=== PATIENT | male | born 1990 | race Hispanic/Latino ===

== ENCOUNTER 2017-08-26 17:14 | Inpatient (IN) | payer MEDICAID, OTHER ==
[2017-08-26 18:09] LABS: #Basophils 0.1 thou/uL (0.0-0.2); #Eosinphils 0.1 thou/uL (0.0-0.7); #Lymphocytes 3.5 thou/uL (1.20-3.40); #Monocytes 0.8 thou/uL (0.11-0.59); #Neutrophils 8.9 thou/uL (1.40-6.50); %Basophils 0.6 % (0.0-1.0); %Eosinophils 0.8 % (0.0-10.0); %Lymphocytes 25.8 % (21.0-51.0); %Monocytes 6.1 % (0.0-10.0); %Neutrophils 66.8 % (42.0-75.0); Hemoglobin 16.8 g/dL (14.0-18.0); Mean Corpuscular HGB CONC 34.9 g/dL (32.0-36.0); Mean Corpuscular Hemoglobin 30.2 pg (27.0-31.0); Mean Corpuscular Volume 86.6 fl (80.0-94.0); Mean Platelet Volume 8.9 fL (7.4-10.4); Platelet Count 268 thou/uL (130-400); RBC Distribution Width 12.4 % (11.5-14.5); Red Blood Cell (RBC) Count 5.57 mill/uL (4.70-6.10); White Blood Cell (WBC) Count 13.4 thou/uL (4.8-10.8)
[2017-08-26 18:14] LABS: Base Excess-Venous -0.9 mmol/L (0 (+/- 2.5)); Bicarbonate (HCO3v) 24.2 mmol/L (1.0-85.0); CO2 Tension (PvCO2) 40.5 mmHg (41.0-51.0); Calcium, Ionized 1.05 mmol/L (1.12-1.32); Hemoglobin - Calc 18.2 g/dL (12.0-18.0); T. Carbon Dioxide 25.4 mmol/L (1.0-85.0); pH (Venous) 7.384 (7.35-7.45); vO2 Saturation-calc 62.5 % (94-98)
[2017-08-26 18:20] LABS: Bilirubin Negative (Negative); Blood, Urine Negative (Negative); Clarity CLEAR (Clear); Glucose, Urine (Dipstick) >=1000 mg/dL (Negative); Leukocyte Negative (Negative); Nitrite Negative (Negative); Protein, Urine (Dipstick) Trace mg/dL (Neg-Trace); Urobilinogen 0.2 mg/dL (0.2-1.0)
[2017-08-26 18:34] LABS: ALT (SGPT) 65 U/L (8-55); AST (SGOT) 36 U/L (5-34); Alkaline Phosphatase 116 U/L (40-150); Anion Gap 21 mmol/L (10-20); BUN (Urea Nitrogen) 14 mg/dL (8.9-20.6); Bilirubin, Total 1.3 mg/dL (0.2-1.2); CK (CPK) 96 U/L (30-200); Calc. Creatinine Clearance 0 mL/min (70-130); Calcium 10.7 mg/dL (7.8-10.44); Carbon Dioxide 22 mmol/L (22-29); Chloride 95 mmol/L (98-107); Estimated GFR-MDRD 68; Globulin 3.6 g/dL (2.4-3.5); Protein, Total 8.6 g/dL (6.0-8.3); Sodium 134 mmol/L (136-145)
[2017-08-26 18:38] LABS: Glucose 615 mg/dL (70-105)
[2017-08-26] MEDS ORDERED: Insulin Regular 300 UNITS/3 ML VIAL ONE (18:50)
[2017-08-26 19:05] LABS: Magnesium 2.3 mg/dL (1.6-2.6); Phosphorus 5.1 mg/dL (2.3-4.7)
--- NOTE | 2017-08-26 19:20 | PDOC.FPRHP ---
- History of Present Illness Chief Complaint: Weakness, N/V History of Present Illness: 27 yo male presents for evaluation of weakness, N/V for one month. He is a type 2 DM diganosed approximately 4 years ago. He last had his A1C checked in June 2017 and it was 10.3. He states over the last month he has had polyuria and polydipsia. He does not check his glucose levels on a daily basis. He denies any recent fevers, but does state he gets chills at nights at times. His states he has had weakness, fatigue, and low energy during this time as well. He states he has had associated nausea and vomiting with intermittent diarrhea. He also complains of pain in his rectum that comes and goes. He states he has some blood on the toilet paper and also has problems with constipation. No other complaints today. ED Course: 2L NS Novolin 6 u - Allergies/Adverse Reactions Allergies Allergy/AdvReac Type Severity Reaction Status Date / Time cefaclor [From Ceclor] Allergy Verified 08/26/17 19:22 - Home Medications Medication Instructions Recorded Confirmed Type Atorvastatin Calcium 40 mg PO DAILY 08/26/17 08/26/17 History Lisinopril [Zestril] 2.5 mg PO DAILY 08/26/17 08/26/17 History Pantoprazole Sodium [Protonix] 40 mg PO DAILY 08/26/17 08/26/17 History metFORMIN [Glucophage] 500 mg PO QAM-WM 08/26/17 08/26/17 History - History PMHx: DM2, GERD, HLD, HTN PSHx: Tumor removal behind L eye, Cyst removal, Tonsillectomy FHx: Non-Contributory Social: Social alcohol drinker, No tobacco or drug use. - Review of Systems General: denies: fever/chills, weight/appetite/sleep changes Eyes: denies: eye pain ENT: denies: nasal congestion, rhinorrhea Respiratory: denies: cough, congestion, shortness of breath Cardiovascular: denies: chest pain, palpitation Gastrointestinal: reports: nausea, vomiting Genitourinary: reports: polyuria Skin: denies: rashes, lesions Musculoskeletal: denies: pain, tenderness, stiffness Neurological: reports: weakness. denies: numbness, syncope Psychological: denies: anxiety, depression - Vital signs BP: [124/71] HR: [89] RR: [20] Tmax: [97.5] Pox: [97]% on [RmAir] Wt: [95.25] - Physical Exam Constitutional: NAD HEENT: grossly normal vision, TM's clear and intact, grossly normal hearing, normal nasal mucosa Neck: supple, trachea midline Chest: no-tender to palpation Heart: RRR, normal S1/S2, no murmurs/rubs/gallops, pulses present Lungs: CTAB, no respiratory distress, good air movement, no wheezing, no retractions Abdomen: soft, non-tender, bowel sounds present, no masses/distention Musculoskeletal: normal structure, normal tone Neurological: no focal deficit, CN II-XII intact, normal sensation Skin: no rash/lesions, good turgor, capillary refill <2 seconds Heme/Lymphatic: no unusual bruising or bleeding, no purpura Psychiatric: normal mood and affect, good judgment and insight, intact recent and remote memory FMR H&P: Results - Labs Result Diagrams: 08/26/17 17:48 08/26/17 17:48 Lab results: WBC 13.4 thou/uL (4.8-10.8) H 08/26/17 17:48 Hgb 16.8 g/dL (14.0-18.0) 08/26/17 17:48 Hct 48.2 % (42.0-52.0) 08/26/17 17:48 MCV 86.6 fl (80.0-94.0) 08/26/17 17:48 Plt Count 268 thou/uL (130-400) 08/26/17 17:48 Neutrophils % 66.8 % (42.0-75.0) 08/26/17 17:48 VBG pCO2 40.5 mmHg (41.0-51.0) L 08/26/17 17:57 VBG pO2 33.0 mmHg (35.0-45.0) L 08/26/17 17:57 Sodium 134 mmol/L (136-145) L 08/26/17 17:48 Potassium 4.0 mmol/L (3.5-5.1) 08/26/17 17:48 Chloride 95 mmol/L (98-107) L 08/26/17 17:48 Carbon Dioxide 22 mmol/L (22-29) 08/26/17 17:48 BUN 14 mg/dL (8.9-20.6) 08/26/17 17:48 Creatinine 1.28 mg/dL (0.6-1.3) 08/26/17 17:48 Glucose 615 mg/dL (70-105) H* 08/26/17 17:48 Lactic Acid 1.4 mmol/L (0.5-2.2) 08/26/17 17:51 Calcium 10.7 mg/dL (7.8-10.44) H 08/26/17 17:48 Total Bilirubin 1.3 mg/dL (0.2-1.2) H 08/26/17 17:48 AST 36 U/L (5-34) H 08/26/17 17:48 ALT 65 U/L (8-55) H 08/26/17 17:48 Alkaline Phosphatase 116 U/L (40-150) 08/26/17 17:48 Creatine Kinase 96 U/L (30-200) 08/26/17 17:48 Serum Total Protein 8.6 g/dL (6.0-8.3) H 08/26/17 17:48 Albumin 5.0 g/dL (3.5-5.0) 08/26/17 17:48 Urine Ketones 40 mg/dL (Negative) H 08/26/17 18:00 Urine Blood Negative (Negative) 08/26/17 18:00 Urine Nitrite Negative (Negative) 08/26/17 18:00 Ur Leukocyte Esterase Negative (Negative) 08/26/17 18:00 FMR H&P: A/P - Problem List (1) Ketosis due to diabetes Current Visit: Yes Status: Acute Code(s): E13.10 - OTH DIABETES MELLITUS WITH KETOACIDOSIS WITHOUT COMA (2) DM2 (diabetes mellitus, type 2) Current Visit: Yes Status: Acute (3) HTN (hypertension) Current Visit: Yes Status: Acute Code(s): I10 - ESSENTIAL (PRIMARY) HYPERTENSION (4) HLD (hyperlipidemia) Current Visit: Yes Status: Acute Code(s): E78.5 - HYPERLIPIDEMIA, UNSPECIFIED (5) GERD (gastroesophageal reflux disease) Current Visit: Yes Status: Acute Code(s): K21.9 - GASTRO-ESOPHAGEAL REFLUX DISEASE WITHOUT ESOPHAGITIS (6) Hemorrhoids Current Visit: Yes Status: Acute Code(s): K64.9 - UNSPECIFIED HEMORRHOIDS (7) Elevated LFTs Current Visit: Yes Status: Acute Code(s): R79.89 - OTHER SPECIFIED ABNORMAL FINDINGS OF BLOOD CHEMISTRY - Plan 1. Ketosis with DM2 - No acidosis at this time - IVF - Will initiate long acting insulin and sliding scale - Accuchecks - Will check C-peptide level - A1C checked June 2017 10.3 2. HTN - Continue Lisinopril - Monitor BP 3. HLD - Continue Statin 4. GERD - Continue Protonix 5. Hemorrhoids - Topical Therapy 6. Elevated LFTs - Consistent with Lab findings one month ago - Likely LLOYD - Recommend outpatient follow up CODE STATUS: FULL CODE Disposition: Stable, Will admit to Medical. FMR H&P: Upper Level - Pertinent history 27 yo HM pmhx T2DM and hyperlipidemia presents for evaluation of worsening weakness and N/V x 1 day. His stated that she also noticed him looking pale and diaphoretic today and encouraged him to go to ER. Mentation intact. Patient states that he has been having these symptoms, along with polydypsia and polyuria for one month. Has lost approximately 20 lbs over that time period. Diabetes was diagnosed approximately 4 years ago. Last A1C checked in June 2017 was 10.3. Patient was instructed to increase metformin to twice per day, but he has only been able to tolerate once daily dosing due to GI side effects. He has not been checking his glucose levels at home. He denies any recent fevers or symptoms of infection. No sick contacts. No chest pain. Endorses marajuana and ETOH use a few times this past month but denies any recent consumption over the past week. - Pertinent findings Gen: obese, NAD, appears stated age CV: RRR, no m/g/r Lungs: CTAB, no wheezing Abd: +BS, non-tender to palpation, no HSM Ext: no c/c/e Pulses: DP 2+ b/l - Plan Date/Time: 08/26/171917 IRudi MD, have evaluated this patient and agree with findings/plan as outlined by event marketing intern resident. Pertinent changes/additions are listed here. 27 yo HM with: 1) Diabetic ketosis without acidosis: Admit to medical. Start long acting insulin. Continue fluids. Short acting prn. Keep NPO until gap closes. 2) Uncontrolled type 2 DM with microalbuminuria: Recheck A1c. Will also check C- peptide to verify endogenous insulin production still intact. Diabetes education during admission. Will need to ensure patient has glucose testing supplies at discharge. He will also need to go home on insulin. 3) HTN: cont. lisinopril (patient was not taking until 1 month ago, so dose probably does not need to be increased at this time for microalbuminura) 4) HLD: cont. high dose statin 5) Elevated LFTs - Consistent with previous labs in Clinic 1 month ago. Likely LLOYD, but will need outpatient workup. Attending Addendum - Attending Addendum Date/Time: 08/26/17 [id number] I personally evaluated the patient and discussed the management with Drs. Joya and Emilee. I agree with the History, Examination, Assessment and Plan documented above with any addition or exceptions noted below. Patient is has Diabetes withi betahydroxybuterate, but is not significantly acidotic, yet is not classic HHS. IV fluid resuscitation performed in ER. Insulin initiated. C-peptide ordered.
[2017-08-26] MEDS ORDERED: Insulin Detemir 100 UNITS/ML 8 UNITS in Pre-Filled Syringe 1 EACH SC SCH (20:15)
[2017-08-26] MEDS ORDERED: Dextrose 50% Abboject 50 ML SYRINGE SLOW IVP PRN (21:49)
[2017-08-26] MEDS ORDERED: Ondansetron ODT 4 MG TAB PO PRN (21:49)
[2017-08-26] MEDS ORDERED: Senokot 8.6 MG TAB PO PRN (21:49)
[2017-08-26] MEDS ORDERED: Bisacodyl 5 MG TAB PO PRN (21:49)
[2017-08-26] MEDS ORDERED: Preparation H Suppository PR PRN (21:49)
[2017-08-26] MEDS ORDERED: Dextrose 5% in Water 1,000 ML IV PRN (21:49)
[2017-08-26] MEDS ORDERED: Acetaminophen 325 MG TAB PO PRN (21:49)
[2017-08-26 22:26] LABS: Anion Gap 18 mmol/L (10-20); BUN (Urea Nitrogen) 11 mg/dL (8.9-20.6); Calc. Creatinine Clearance 0 mL/min (70-130); Calcium 9.6 mg/dL (7.8-10.44); Carbon Dioxide 22 mmol/L (22-29); Chloride 105 mmol/L (98-107); Estimated GFR-MDRD Greater than 90; Glucose 318 mg/dL (70-105); Potassium 3.9 mmol/L (3.5-5.1); Sodium 141 mmol/L (136-145)
[2017-08-26] MEDS: NS 0.9% w/ 20 MEQ KCL 1,000 ML/1,000 ML BAG IV SCH (22:42)
[2017-08-26] MEDS: Docusate 100 MG CAP PO SCH (22:42)
[2017-08-26] MEDS ORDERED: Docusate 100 MG CAP PO SCH (22:45)
[2017-08-27 01:55] VITALS: BMI 32.5
[2017-08-27] MEDS: NS 0.9% w/ 20 MEQ KCL 1,000 ML/1,000 ML BAG IV SCH ×3 (02:30→09:19)
[2017-08-27 05:20] LABS: ALT (SGPT) 52 U/L (8-55); AST (SGOT) 36 U/L (5-34); Albumin 3.9 g/dL (3.5-5.0); Alkaline Phosphatase 75 U/L (40-150); Anion Gap 15 mmol/L (10-20); BUN (Urea Nitrogen) 11 mg/dL (8.9-20.6); Calc. Creatinine Clearance 166 mL/min (70-130); Calcium 8.8 mg/dL (7.8-10.44); Carbon Dioxide 21 mmol/L (22-29); Chloride 107 mmol/L (98-107); Estimated GFR-MDRD Greater than 90; Globulin 2.4 g/dL (2.4-3.5); Glucose 300 mg/dL (70-105); Potassium 4.6 mmol/L (3.5-5.1); Protein, Total 6.3 g/dL (6.0-8.3); Sodium 138 mmol/L (136-145)
[2017-08-27] MEDS: HumaLOG 300 UNITS/3 ML VIAL SC PRN ×4 (05:26→17:38)
--- NOTE | 2017-08-27 08:33 | PDOC.FM ---
- Subjective Subjective: Patient is doing well. He did not sleep very well overnight. He is hungry this AM. He denies any N/V, abdominal pain, chest pain. He reports that he is overall feeling a lot better. He understands that he is going to have to be on insulin at home. - Objective MAR Reviewed: Yes Vital Signs & Weight: Vital Signs (12 hours) Temp Pulse Resp BP Pulse Ox 08/27/17 07:27 98.3 F 64 16 110/71 98 08/27/17 03:47 98.4 F 62 18 119/78 98 08/26/17 23:31 98.4 F 76 18 120/72 99 08/26/17 20:55 98.1 F 90 18 124/77 98 Weight Weight 91.49 kg I&O: 08/26/17 08/27/17 08/28/17 06:59 06:59 06:59 Intake Total 2530 Balance 2530 Result Diagrams: 08/26/17 17:48 08/27/17 03:57 <Mariaa Mirza - Last Filed: 08/27/17 08:31> - Objective Vital Signs & Weight: Vital Signs (12 hours) Temp Pulse Resp BP BP Pulse Ox 08/27/17 11:43 98.5 F 64 16 111/64 98 08/27/17 09:06 64 110/71 08/27/17 08:00 98.3 F 64 16 08/27/17 07:27 98.3 F 64 16 110/71 98 08/27/17 03:47 98.4 F 62 18 119/78 98 Weight Weight 91.49 kg I&O: 08/26/17 08/27/17 08/28/17 06:59 06:59 06:59 Intake Total 2530 Balance 2530 Result Diagrams: 08/26/17 17:48 08/27/17 03:57 <Darling Black - Last Filed: 08/27/17 15:18> Phys Exam - Physical Examination Constitutional: NAD HEENT: moist MMs Respiratory: no wheezing, no rales, no rhonchi, clear to auscultation bilateral Cardiovascular: RRR, no significant murmur, no rub Gastrointestinal: soft, non-tender, no distention, positive bowel sounds obese Musculoskeletal: no edema, pulses present Neurological: non-focal, moves all 4 limbs Psychiatric: normal affect, A&O x 3 Skin: normal turgor, cap refill <2 seconds <Mariaa Mirza - Last Filed: 08/27/17 08:31> Dx/Plan (1) Ketosis due to diabetes Code(s): E13.10 - OTH DIABETES MELLITUS WITH KETOACIDOSIS WITHOUT COMA Status : Acute (2) DM2 (diabetes mellitus, type 2) Status: Acute QualifierTitle: Diabetes mellitus longterm insulin use: without longterm use Diabetes mellitus complication status: with ketoacidosis Diabetes mellitus complication detail: without coma Qualified Code(s): E11.10 - Type 2 diabetes mellitus with ketoacidosis without coma (3) Elevated LFTs Code(s): R79.89 - OTHER SPECIFIED ABNORMAL FINDINGS OF BLOOD CHEMISTRY Status : Acute (4) GERD (gastroesophageal reflux disease) Code(s): K21.9 - GASTRO-ESOPHAGEAL REFLUX DISEASE WITHOUT ESOPHAGITIS Status: Acute QualifierTitle: Esophagitis presence: without esophagitis Qualified Code( s): K21.9 - Gastro-esophageal reflux disease without esophagitis (5) HLD (hyperlipidemia) Code(s): E78.5 - HYPERLIPIDEMIA, UNSPECIFIED Status: Acute QualifierTitle: Hyperlipidemia type: other hyperlipidemia Qualified Code( s): E78.4 - Other hyperlipidemia (6) HTN (hypertension) Code(s): I10 - ESSENTIAL (PRIMARY) HYPERTENSION Status: Acute QualifierTitle: Hypertension type: essential hypertension Qualified Code( s): I10 - Essential (primary) hypertension (7) Hemorrhoids Code(s): K64.9 - UNSPECIFIED HEMORRHOIDS Status: Acute QualifierTitle: Hemorrhoid type: unspecified Qualified Code(s): K64.9 - Unspecified hemorrhoids - Plan Plan: Ketosis with DM2 Patient presented with elevated ketones and glucose of 615. He has no acidosis at this time. He was given 6U insulin in ED as well as 2L NS boluses. His glucose came down to 320 with that. He was started on 8U levemir overnight last night, but his glucose remained around 300. He is still on IVF as well. He was started on a CC diet. His A1c in 06/2017 was 10.3 and it is 14.0 now. - NS with 20mEq KCl at 250 mL/hr - Mild SSI - Accuchecks q4h - C-peptide level - Levemir 15U BID, will titrate up as necessary - Will prescribe glucometer and supplies for outpatient - Diabetic education HTN - Continue Lisinopril - Monitor BP HLD - Continue Statin GERD - Continue Protonix Hemorrhoids - Topical Therapy Elevated LFTs - Consistent with Lab findings one month ago - Likely NAFLD - Recommend outpatient follow up <Mariaa Mirza - Last Filed: 08/27/17 08:31> Attending Addendum - Attending Addendum Date/Time: 08/27/17 1307 I personally evaluated the patient and discussed the management with Dr. Mirza. I agree with the History, Examination, Assessment and Plan documented above with any addition or exceptions noted below. Patient has been started on insulin for uncontrolled diabetes. Will get compensation associate to discuss diabetic diet. Discussed importance of blood sugar control. He voiced understanding. Continue to titrate insulin. <Darling Black - Last Filed: 08/27/17 15:18>
[2017-08-27 08:57] LABS: Magnesium 1.9 mg/dL (1.6-2.6); Phosphorus 2.9 mg/dL (2.3-4.7)
[2017-08-27] MEDS ORDERED: Pantoprazole 40 MG GRANULES PACKET PO SCH (09:00)
[2017-08-27] MEDS ORDERED: Insulin Detemir 100 UNITS/ML 10 UNITS in Pre-Filled Syringe 1 EACH SC SCH ×2 (09:00→21:00)
[2017-08-27] MEDS ORDERED: Insulin Detemir 100 UNITS/ML 15 UNITS in Pre-Filled Syringe 1 EACH SC SCH ×2 (09:00→21:00)
[2017-08-27] MEDS: Docusate 100 MG CAP PO SCH ×2 (09:06→20:35)
[2017-08-27] MEDS: metFORMIN 500 MG TAB PO SCH (09:06)
[2017-08-27] MEDS: Lisinopril 2.5 MG TAB PO SCH (09:06)
[2017-08-27] MEDS: Atorvastatin Calcium 40 MG TAB PO SCH (09:07)
[2017-08-27] MEDS ORDERED: Ibuprofen 800 MG TAB PO PRN (20:45)
[2017-08-27] MEDS ORDERED: Insulin Detemir 100 UNITS/ML 20 UNITS in Pre-Filled Syringe SC SCH (21:00)
[2017-08-28] MEDS: HumaLOG 300 UNITS/3 ML VIAL SC PRN ×3 (05:08→12:26)
[2017-08-28] MEDS ORDERED: Dextrose 5% in Water 1,000 ML IV PRN (06:48)
[2017-08-28] MEDS ORDERED: Dextrose 50% Abboject 50 ML SYRINGE SLOW IVP PRN (06:48)
[2017-08-28 07:30] VITALS: BP 117/75; TEMP 97.7
[2017-08-28] MEDS: Docusate 100 MG CAP PO SCH (08:06)
[2017-08-28] MEDS: Atorvastatin Calcium 40 MG TAB PO SCH (08:06)
[2017-08-28] MEDS: Lisinopril 2.5 MG TAB PO SCH (08:06)
[2017-08-28] MEDS: metFORMIN 500 MG TAB PO SCH (08:11)
[2017-08-28] MEDS ORDERED: Insulin Detemir 100 UNITS/ML 25 UNITS in Pre-Filled Syringe 1 EACH SC SCH (09:00)
--- NOTE | 2017-08-28 09:13 | PDOC.FM ---
- Subjective Subjective: Patient doing well this AM. Reports some episodes of nausea yesterday. He also reports feeling "sick" at times yesterday. He slept well and is eating well. No other complaints. - Objective MAR Reviewed: Yes Vital Signs & Weight: Vital Signs (12 hours) Temp Pulse Resp BP BP Pulse Ox 08/28/17 08:06 75 117/75 08/28/17 08:00 97.7 F 75 16 08/28/17 07:28 97.7 F 75 16 117/75 100 Weight Weight 91.49 kg I&O: 08/27/17 08/28/17 08/29/17 06:59 06:59 06:59 Intake Total 2530 490 Balance 2530 490 Result Diagrams: 08/26/17 17:48 08/27/17 03:57 <Mariaa Mirza - Last Filed: 08/28/17 09:10> - Objective Vital Signs & Weight: Vital Signs (12 hours) Temp Pulse Resp BP BP Pulse Ox 08/28/17 08:06 75 117/75 08/28/17 08:00 97.7 F 75 16 08/28/17 07:28 97.7 F 75 16 117/75 100 Weight Weight 91.49 kg I&O: 08/27/17 08/28/17 08/29/17 06:59 06:59 06:59 Intake Total 2530 490 Balance 2530 490 Result Diagrams: 08/26/17 17:48 08/27/17 03:57 <Darling Black - Last Filed: 08/28/17 18:50> Phys Exam - Physical Examination Constitutional: NAD HEENT: moist MMs Respiratory: no wheezing, no rales, no rhonchi, clear to auscultation bilateral Cardiovascular: RRR, no significant murmur, no rub Gastrointestinal: soft, non-tender, no distention, positive bowel sounds Musculoskeletal: no edema, pulses present Neurological: non-focal, normal sensation, moves all 4 limbs Psychiatric: normal affect, A&O x 3 Skin: normal turgor, cap refill <2 seconds <Mariaa Mirza - Last Filed: 08/28/17 09:10> Dx/Plan (1) Ketosis due to diabetes Code(s): E13.10 - OTH DIABETES MELLITUS WITH KETOACIDOSIS WITHOUT COMA Status : Acute (2) DM2 (diabetes mellitus, type 2) Status: Acute QualifierTitle: Diabetes mellitus chcf insulin use: without long goods drier use Diabetes mellitus complication status: with ketoacidosis Diabetes mellitus complication detail: without coma Qualified Code(s): E11.10 - Type 2 diabetes mellitus with ketoacidosis without coma (3) Elevated LFTs Code(s): R79.89 - OTHER SPECIFIED ABNORMAL FINDINGS OF BLOOD CHEMISTRY Status : Acute (4) GERD (gastroesophageal reflux disease) Code(s): K21.9 - GASTRO-ESOPHAGEAL REFLUX DISEASE WITHOUT ESOPHAGITIS Status: Acute QualifierTitle: Esophagitis presence: without esophagitis Qualified Code( s): K21.9 - Gastro-esophageal reflux disease without esophagitis (5) HLD (hyperlipidemia) Code(s): E78.5 - HYPERLIPIDEMIA, UNSPECIFIED Status: Acute QualifierTitle: Hyperlipidemia type: other hyperlipidemia Qualified Code( s): E78.4 - Other hyperlipidemia (6) HTN (hypertension) Code(s): I10 - ESSENTIAL (PRIMARY) HYPERTENSION Status: Acute QualifierTitle: Hypertension type: essential hypertension Qualified Code( s): I10 - Essential (primary) hypertension (7) Hemorrhoids Code(s): K64.9 - UNSPECIFIED HEMORRHOIDS Status: Acute QualifierTitle: Hemorrhoid type: unspecified Qualified Code(s): K64.9 - Unspecified hemorrhoids - Plan Plan: Ketosis with DM2 Patient presented with elevated ketones and glucose of 615. He has no acidosis at this time. He was given 6U insulin in ED as well as 2L NS boluses. His glucose came down to 320 with that. He was started on a CC diet. His A1c in 2017 was 10.3 and it is 14.0 now. Yesterday he was given 15U Levemir in the AM and 20U in the PM along with 15 U SSI. His glucose ranged from 239-307. - IVF d/c'd - Increased SSI to moderate - Accuchecks q4h - Levemir 25U BID, will titrate up as necessary - Will prescribe glucometer and supplies for outpatient - Diabetic education - Dietitian consulted HTN - Continue Lisinopril - Monitor BP HLD - Continue Statin GERD - Continue Protonix Hemorrhoids - Topical Therapy Elevated LFTs - Consistent with Lab findings one month ago - Likely NAFLD - Recommend outpatient follow up <Mariaa Mirza - Last Filed: 08/28/17 09:10> Attending Addendum - Attending Addendum Date/Time: 08/28/17 1850 I personally evaluated the patient and discussed the management with Dr. Mirza. I agree with the History, Examination, Assessment and Plan documented above with any addition or exceptions noted below. The patient will discharge home. Will change to Lantus. Pt already has f/u scheduled on Sunday. <Darling Black - Last Filed: 08/28/17 18:50>
--- NOTE | 2017-08-29 13:11 | DIS-2 ---
DATE OF ADMISSION: 08/26/2017 DATE OF DISCHARGE: 08/28/2017 ADMITTING RESIDENT: Brant Garrison M.D. DISCHARGE RESIDENT: Mariaa Mirza M.D. ADMITTING ATTENDING: Robert Canela M.D. DISCHARGE ATTENDING: Darling Black M.D. CONSULTATIONS: None. PROCEDURES: None. PRIMARY DIAGNOSES: 1. Diabetic ketosis without acidosis. 2. Uncontrolled diabetes mellitus type 2. 3. Elevated liver function tests. 4. Hemorrhoids. SECONDARY DIAGNOSES: 1. Hypertension. 2. Hyperlipidemia. 3. Gastroesophageal reflux disease. DISCHARGE MEDICATIONS: 1. Atorvastatin 40 mg p.o. daily. 2. Lantus SoloStar 50 units subcu q.a.m. 3. Lisinopril 2.5 mg p.o. daily. 4. Metformin 500 mg p.o. q.a.m. with meals. 5. Zofran 4 mg p.o. q.6. p.r.n. for nausea and vomiting. 6. Protonix 40 mg p.o. daily. DISCONTINUED MEDICATIONS: None. HISTORY OF PRESENT ILLNESS AND HOSPITAL COURSE: This is a 27-year-old male who presented du e to nausea, vomiting, and weakness that have been going on for about 1 month. The patient hemoglobi n A1c that was checked in June that was 10.3. The patient was found initially to have a glucose of 615 as well as beta hydroxybutyrate of 2.68 and a hemoglobin A1c of 14.0. The patient was initially stabilized with 6 units of insulin in the ER and 2 normal saline boluses and blood sugar came down to 320 after that. The patient's glucose stayed in the high 200s to low 300s throughout his hospitaliz ation. The patient was started on long-acting insulin, this was titrated up to 25 units on his last day of hospitalization. The patient's symptoms improved after his blood sugar improved, he was able to tolerate a consistent carb diet. The patient was given education regarding diabetes management, t he use of glucometer, the use of insulin, how and when to check his blood sugar as well as diabetic d iet and the importance of exercise. The patient was given a prescription for glucometer and glucomet er supplies and was prescribed Lantus for use outpatient as the patient had only been on metformin. Of note, the patient was also found to have elevated LFTs that were stable from previous. This is li keren related to nonalcoholic fatty liver disease and recommends that the patient have follow up with his primary care physician as an outpatient. By the time of discharge, the patient had an appointmen t with his primary care physician for 3 days after discharge. DISPOSITION: Stable. DISCHARGE INSTRUCTIONS: 1. Location: Home. 2. Diet: Consistent carb with diabetic diet. 3. Activity: As tolerated. 4. Followup: Follow up with Dr. Vásquez and [facility] within 7 days.
== END 2017-08-28 15:09 | disposition home or self-care (01) | DRG 639 ==
LOC: ERS 17:14 → T4-B 19:20
PROVIDERS: ADMIT Family Medicine; ATTEND Family Medicine
DX: E11.10 Type 2 diabetes mellitus with ketoacidosis without coma (principal); K76.0 Fatty (change of) liver, not elsewhere classified; E78.5 Hyperlipidemia, unspecified; K21.9 Gastro-esophageal reflux disease without esophagitis; I10 Essential (primary) hypertension; K64.9 Unspecified hemorrhoids; Z88.1 Allergy status to other antibiotic agents; Z79.84 Long term (current) use of oral hypoglycemic drugs; Z79.899 Other long term (current) drug therapy
CPT/HCPCS: 36415; 36416; 80053; 81003; 82010; 82330; 82550; 82803; 83036; 83605; 83735; 83930; 84100; 84681; 85025; 86850; 86900; 86901; 90471; 90732; 96361; 96374; A4216; G0009; J1815

== ENCOUNTER 2018-06-09 08:16 | Emergency (ER) | payer OTHER ==
[2018-06-09] MEDS ORDERED: Ondansetron ODT 4 MG TAB ONE (08:39)
[2018-06-09 08:59] LABS: #Basophils 0.1 thou/uL (0.0-0.2); #Eosinphils 0.1 thou/uL (0.0-0.7); #Lymphocytes 3.4 thou/uL (1.20-3.40); #Monocytes 0.6 thou/uL (0.11-0.59); #Neutrophils 6.1 thou/uL (1.40-6.50); %Basophils 0.8 % (0.0-1.0); %Eosinophils 1.4 % (0.0-10.0); %Lymphocytes 32.7 % (21.0-51.0); %Monocytes 5.9 % (0.0-10.0); %Neutrophils 59.2 % (42.0-75.0); Hemoglobin 15.3 g/dL (14.0-18.0); Mean Corpuscular HGB CONC 33.8 g/dL (32.0-36.0); Mean Corpuscular Hemoglobin 30.1 pg (27.0-31.0); Mean Corpuscular Volume 88.9 fL (78.0-98.0); Mean Platelet Volume 7.5 fL (7.4-10.4); Platelet Count 274 thou/uL (130-400); White Blood Cell (WBC) Count 10.4 thou/uL (4.8-10.8)
[2018-06-09 09:23] LABS: ALT (SGPT) 26 U/L (8-55); AST (SGOT) 19 U/L (5-34); Albumin 5.1 g/dL (3.5-5.0); Alkaline Phosphatase 71 U/L (40-150); Anion Gap 16 mmol/L (10-20); BUN (Urea Nitrogen) 14 mg/dL (8.9-20.6); Bilirubin, Total 1.2 mg/dL (0.2-1.2); Calc. Creatinine Clearance 0 mL/min (70-130); Calcium 10.1 mg/dL (7.8-10.44); Carbon Dioxide 23 mmol/L (22-29); Chloride 105 mmol/L (98-107); Estimated GFR-MDRD Greater than 90; Globulin 3.1 g/dL (2.4-3.5); Glucose 88 mg/dL (70-105); Lipase 25 U/L (8-78); Potassium 3.9 mmol/L (3.5-5.1); Protein, Total 8.2 g/dL (6.0-8.3); Sodium 140 mmol/L (136-145)
== END 2018-06-09 09:29 | disposition home or self-care (01) ==
LOC: ERS 08:16
DX: R11.2 Nausea with vomiting, unspecified (principal); E11.9 Type 2 diabetes mellitus without complications; E78.5 Hyperlipidemia, unspecified; K21.9 Gastro-esophageal reflux disease without esophagitis; I10 Essential (primary) hypertension; Z79.84 Long term (current) use of oral hypoglycemic drugs; Z79.899 Other long term (current) drug therapy
CPT/HCPCS: 36415; 80053; 83690; 85025; 99284; Q0162